=== PATIENT | female | born 1985 | race Caucasian/White ===

== ENCOUNTER 2025-01-06 17:04 | Emergency (ER) | payer BC ==
[~2025-01-06] VITALS: Ht 165.1 cm; Wt 125.0 kg
[2025-01-06 17:14] VITALS: TEMP 36.7; O2SAT 98
[2025-01-06 17:15] VITALS: O2SAT 99
[2025-01-06 18:57] VITALS: BP 114/79; PULSE 62; RESP 18
[2025-01-06] MEDS: KETOROLAC 30MG/ML VIAL IM ONE (18:57)
== END 2025-01-06 20:20 | disposition home or self-care (01) ==
LOC: ER 17:04
DX: S80.01XA Contusion of right knee, initial encounter (principal); X58.XXXA Exposure to other specified factors, initial encounter; Y93.11 Activity, swimming; Y92.89 Other specified places as the place of occurrence of the external cause; Y99.8 Other external cause status
CPT/HCPCS: 99283; 73560; 96372; J1885; A6449